=== PATIENT | male | born 1970 | race African-American/Black ===

== ENCOUNTER 2016-12-17 03:46 | Emergency (ER) | payer SELFPAY ==
[~2016-12-17] VITALS: Ht 182.9 cm; Wt 113.4 kg
[2016-12-17 04:00] VITALS: BP 122/84
--- NOTE | 2016-12-17 04:35 | Emergency Room Report ---
History of Present Illness General Chief Complaint: Upper Extremity Injury Source: Patient Present Illness HPI Is a 45-year-old male who is left-hand dominant. He presents with injury to his right fifth finger. Yesterday he was cleaning a sewing needle and he stabbed himself at the PIP joint of the right fifth finger. He said he was doing well until today when it started swelling up. Now is swollen. Tender to palpation. Worse with movement. No fever or chills. No nausea no vomiting. Pain is 7/10. Allergies: Coded Allergies: PENICILLINS (Verified Allergy, Unknown, 12/17/16) Patient History Past Medical History: see triage record, old chart reviewed Past Surgical History: other Pertinent Family History: none Social History: Denies: smoking Immunizations: other Reviewed Nursing Documentation: PMH: Agreed, PSxH: Agreed Nursing Documentation-PMH Hx Asthma: Yes Review of Systems Eye: Denies: blurred vision, eye pain ENT: Denies: ear pain, nose congestion, throat swelling Respiratory: Denies: cough, shortness of breath Cardiovascular: Denies: chest pain, palpitations Gastrointestinal: Denies: abdominal pain, diarrhea, nausea, vomiting Musculoskeletal: Reports: joint pain, joint swelling, Denies: back pain Skin: Denies: rash Neurological: Denies: headache, numbness Endocrine: Denies: increased thirst, increased urine Hematologic/Lymphatic: Denies: easy bruising All Other Systems: negative except mentioned in HPI Physical Exam Vital Signs Date Time Temp Pulse Resp B/P Pulse Ox O2 Delivery O2 Flow Rate FiO2 12/17/16 03:51 98.1 94 18 125/86 96 Room Air vitals normal Sp02 EP Interpretation: reviewed, normal General Appearance: well appearing, no apparent distress, alert Head: normocephalic, atraumatic Eyes: bilateral eye EOMI, bilateral eye PERRL ENT: hearing grossly normal, normal pharynx Neck: full range of motion, supple, no meningismus Respiratory: chest non-tender, lungs clear, normal breath sounds Cardiovascular #1: regular rate, rhythm, no murmur Gastrointestinal: normal bowel sounds, non tender, no mass, no organomegaly, no bruit, non-distended Musculoskeletal: back normal, gait/station normal, other - Right fifth finger there is a puncture wound to the PIP joint on the radial aspect and volar aspect. He has tenderness and edema to the proximal and middle phalanx. Decreased range of motion secondary to pain. Sensation normal. MCP joint is normal. Neurologic: alert, oriented x3 Psychiatric: mood/affect normal Skin: warm/dry Procedures Incision and Drainage Incision and Drainage : Consent: Verbal Site: right index finger Blade Size: 11 I & D Procedure: betadine prep, sterile drapes applied, sterile dressing applied Wound Location: upper extremity Anesthesia: 1% Lidocaine Volume Anesthetic (ccs): 1 Patient Tolerated: Well Complications: None Progress Area cleaned with Betadine. Local anesthetic 1% lidocaine. Initially I used an 18-gauge needle to aspirate the most fluctuant area. There was small amount of pus aspirated. Because of this I made a 1 cm incision over the site of the puncture wound. There was small to moderate amount of pus expressed. Area irrigated. Patient felt better. Skin is now soft her. He has full range of motion of MCP, PIP, and PIP joints. Patient tolerated procedure without a problem. Medical Decision Making Diagnostic Impression: Primary Impression: Abscess of little finger ER Course Sent with abscess of the finger from a puncture wound. He has full range of motion of the joint. Unlikely to be a deep infection. He felt better now. Antibiotics given here. Will discharge home with close followup in 2 days for recheck. Lab Results Impression labs normal Other X-Ray Diagnostic Results Other X-Ray Diagnostic Results : X-Ray Ordered: X-ray right-hand Date: Dec 17, 2016 Time: 05:40 EP Interpretation: Yes Findings: no fractures, no dislocation, other - Soft tissue swelling Number of Views: 3 Last Vital Signs Date Time Temp Pulse Resp B/P Pulse Ox O2 Delivery O2 Flow Rate FiO2 12/17/16 03:51 98.1 94 18 125/86 96 Room Air Status: improved Disposition: HOME, SELF-CARE Condition: Stable Scripts Hydrocodone/Acetaminophen 5-325* (HYDROCODONE/ACETAMINOPHEN 5-325*) 1 Each Tablet 1 TAB ORAL Q6H Y for For Pain, #20 TAB 0 Refills Prov: DEVIN HICKS M.D. 12/17/16 Trimethoprim/Sulfamethoxazole 160/800* (BACTRIM DS TABLET*) 1 Each Tablet 1 TAB ORAL Q12H, #14 TAB 0 Refills Prov: DEVIN HICKS M.D. 12/17/16 Additional Instructions: Follow up in 2 days for recheck. Return if worse. DEVIN HICKS M.D. Dec 17, 2016 04:35
[2016-12-17] MEDS ORDERED: Clindamycin 900mg 50 ML IVPB ONE (04:45)
[2016-12-17 05:04] LABS: BASOPHILS % (AUTO) 1.4 % (0.0-2.0); EOSINOPHILS % (AUTO) 1.3 % (0.0-3.0); LYMPHOCYTES % (AUTO) 17.5 % (20.0-45.0); MEAN CORPUSCULAR HEMOGLOBIN 28.9 PG (27.0-31.0); MEAN CORPUSCULAR HGB CONC 32.3 G/DL (32.0-36.0); MEAN CORPUSCULAR VOLUME 89 FL (80-99); MEAN PLATELET VOLUME 7.7 FL (6.5-10.1); MONOCYTES % (AUTO) 10.8 % (1.0-10.0); NEUTROPHILS % (AUTO) 69.1 % (45.0-75.0); PLATELET COUNT 205 K/UL (150-450); RED BLOOD COUNT 4.83 M/UL (4.70-6.10); RED CELL DISTRIBUTION WIDTH 14.1 % (11.6-14.8); WHITE BLOOD COUNT 8.3 K/UL (4.8-10.8)
[2016-12-17 05:14] LABS: ANION GAP 15 (5-15); CALCIUM 9.2 mg/dL (8.6-10.2); CARBON DIOXIDE 26 mEQ/L (20-30); CHLORIDE 97 mEQ/L (98-107); CREATININE 1.1 mg/dL (0.7-1.2); GLOMERULAR FILTRATION RATE > 60 mL/min (>60); HEMOLYSIS 7; POTASSIUM 4.2 mEQ/L (3.4-4.9); SODIUM 138 mEQ/L (135-145)
[2016-12-17] MEDS ORDERED: HYDROCODON-ACE1 EA15 ORAL (05:41)
[2016-12-17] MEDS ORDERED: BACTRIM DS TAB1 EAC1 ORAL (05:41)
[2016-12-17 05:45] VITALS: BP 120/82
--- NOTE | 2016-12-18 10:33 | Diagnostic Imaging Report ---
Indications: Endotracheal trauma to right hand, pain Technique: 3 views right hand. Findings: Comparison: None Soft tissues of the fifth digit are diffusely swollen. No fracture, dislocation, joint space widening , soft tissue foreign body/gas, or other acute changes are identified. IMPRESSION: Fifth digit soft tissue swelling, nonspecific No other evidence of acute injury the right hand.
== END 2016-12-17 05:45 | disposition home or self-care (01) ==
LOC: EMR 04:41
DX: L02.511 Cutaneous abscess of right hand (principal); Z88.0 Allergy status to penicillin; M25.50 Pain in unspecified joint
CPT/HCPCS: 10060; 36415; 73130; 80048; 85025; 96374; 99284; S0077